=== PATIENT | female | born 1980 | race Caucasian/White ===

== ENCOUNTER 2025-05-08 13:28 | Observation (INO) | payer MEDICAID, OTHER ==
[~2025-05-08] VITALS: Ht 167.6 cm; Wt 92.8 kg
[2025-05-08] MEDS ORDERED: ONDANSETRON HCL 4 MG/2 ML VIAL IM ONE (14:00)
--- NOTE | 2025-05-08 14:03 | ED.PDOC ---
History of Present Illness HPI Comments Ms. Epps is 44-year-old female with no prior medical history, who presents today with chief complaint of nausea and vomiting. She reports this morning she had sudden onset of nausea, vomiting, diarrhea, and sharp generalized abdominal pain, non-radiating, 10/10 intensity, without aggravating or relieving factors, associated with chills and weakness. Refers she has been unable to keep any food or water down since onset of symptoms. She denies hematemesis, blood in stools, cough, chest pain, recent exposure to potentially contaminated foods or sick contacts. Due to persistence of symptoms, the patient presents to the ED for evaluation. On initial eval, the patient is in distress due to pain, she is tachycardic, febrile, and with soft blood pressure. Chief Complaint: Nausea/Vomiting Time Seen by MD: 13:40 Allergies: Coded Allergies: Latex (Verified Allergy, Unknown, 05/08/25) Uncoded Allergies: TAPE (Allergy, Unknown, 05/08/25) Information Source: Patient Mode of Arrival: Ambulatory Severity: Moderate Timing: Hours Duration: Since onset Past Medical History PAST MEDICAL HISTORY: Denies Surgical History (Other): Eye surgery in childhood DIE CUT OPERATOR History: Denies all DIE CUT OPERATOR Hx Family History Family History (Other): Denies Social History Smoker: Non-Smoker Alcohol: Sober (Refers previous binge drinking ) Drugs: Denies Drug Use Lives In: Home Constitutional: reports: chills, weakness; denies: diaphoresis, fatigue, fever, malaise, sweats EENTM: denies: blurred vision, double vision, ear bleeding, ear discharge, ear drainage, ear pain, ear ringing, eye pain, eye redness, hearing loss, mouth pain, mouth swelling, nasal discharge, nose bleeding, nose congestion, nose pain, photophobia, tearing, throat pain, throat swelling Respiratory: denies: cough, hemoptysis, orthopnea, shortness of breath Cardiovascular: denies: chest pain, dizzy spells, diaphoresis, Dyspnea on exertion, edema, left arm pain, lightheadedness, palpitations Gastrointestinal: reports: abdominal pain, diarrhea, nausea, poor appetite, poor fluid intake, vomiting; denies: abdomen distended, blood streaked bowels, constipated, hematemesis, melena, rectal bleeding Genitourinary: denies: burning, dysuria, flank pain, frequency, hematuria, pain, urgency Neurological: reports: dizziness; denies: fainting, headache, numbness, paresthesia, pre-existing deficit, seizure, tingling, tremors Musculoskeletal: reports: back pain; denies: joint pain, joint swelling, muscle pain, muscle stiffness, neck pain Integumetry: denies: bruises, laceration, lesions, lumps, rash, wounds Physical Exam General Appearance: Moderate Distress, Obese HEENT: Normal ENT Inspection, PERRL/EOMI, Pharynx Normal Neck: Full Range of Motion, Non-Tender, Normal Inspection Respiratory: Chest Non-Tender, Lungs Clear, No Accessory Muscle Use, No Respiratory Distress, Normal Breath Sounds Cardiovascular: No Edema, No Murmur, Normal Peripheral Pulses, Tachycardia Breast Exam: Deferred Gastrointestinal: Non Tender, Soft, Other (Hyperactive bowel sounds ) Genitalia: Deferred Pelvic: Deferred Rectal: Deferred Extremities: Normal capillary refill, Normal inspection, Normal range of motion, Non-tender, No pedal edema Neurologic: Alert, Normal Affect, Normal Mood Cerebellar Function: Normal Reflexes: NOT DONE Skin: Normal Color Lymphatic: Other (No Cervical adenopathy) Was a procedure done? Was a procedure done?: No Differential Dx Considerations may include: Acute gastroenteritis, colitis, gastritis, pancreatitis, cholecystitis, diverticulitis, X-Ray, Labs, Meds, VS Vital Signs Date Time Temp Pulse Resp B/P (MAP) Pulse Ox O2 Delivery O2 Flow Rate FiO2 05/08/25 14:30 97 20 98 Room Air 05/08/25 14:30 97 20 113/69 (84) 100 05/08/25 13:30 100.0 110 20 99/59 98 100.0 Lab Test 05/08/25 14:41 05/08/25 14:38 05/08/25 14:37 Range/Units Lactic Acid Level 1.0 0.4-2.0 mmol/L White Blood Count 4.9 4.4-10.8 10^3/uL Red Blood Count 4.75 4.0-5.20 10^6/uL Hemoglobin 14.8 12.2-16.2 g/dL Hematocrit 43.2 36.0-46.0 % Mean Corpuscular Volume 91.0 80.0-100.0 fL Mean Corpuscular Hemoglobin 31.1 28.0-32.0 pg Mean Corpuscular Hemoglobin Concent 34.2 32.0-36.0 g/dL Red Cell Distribution Width 13.5 11.8-14.3 % Platelet Count 244 140-450 10^3/uL Mean Platelet Volume 7.7 6.9-10.8 fL Neutrophils (%) (Auto) 91.0 H 37.0-80.0 % Lymphocytes (%) (Auto) 2.5 L 10.0-50.0 % Monocytes (%) (Auto) 6.2 0.0-12.0 % Eosinophils (%) (Auto) 0.2 0.0-7.0 % Basophils (%) (Auto) 0.1 0.0-2.0 % Neutrophils # (Auto) 4.5 1.6-8.6 10 ^3/uL Lymphocytes # (Auto) 0.1 L 0.4-5.4 10 ^3/uL Monocytes # (Auto) 0.3 0-1.3 10 ^3/uL Eosinophils # (Auto) 0 0-0.8 10 ^3/uL Basophils # (Auto) 0 0-0.2 10 ^3/uL Nucleated Red Blood Cells 0.0 % Sodium Level 142 136-145 mmol/L Potassium Level 3.9 3.5-5.1 mmol/L Chloride Level 109 H 98-107 mmol/L Carbon Dioxide Level 20 20-31 mmol/L Anion Gap 13 5-15 Blood Urea Nitrogen 12 9-23 mg/dL Creatinine 0.81 0.550-1.02 mg/dL Glomerular Filtration Rate Calc 91 >90 mL/min BUN/Creatinine Ratio 14.8 10.0-20.0 Serum Glucose 91 74-106 mg/dL Calcium Level 9.3 8.7-10.4 mg/dL Total Bilirubin 0.8 0.2-1.0 mg/dL Aspartate Amino Transferase (AST) 19 13-40 U/L Alanine Aminotransferase (ALT) < 9 7-40 U/L Alkaline Phosphatase 82 46-116 U/L Total Protein 7.3 5.7-8.2 g/dL Albumin 4.3 3.2-4.8 g/dL Lipase 36 12-53 U/L Urine Opiates Screen Neg NEGATIVE Urine Fentanyl Screen Neg NEGATIVE Urine Barbiturates Screen Neg NEGATIVE Urine Phencyclidine Screen Neg NEGATIVE Urine Amphetamines Screen Neg NEGATIVE Urine Benzodiazepines Screen Neg NEGATIVE Urine Cocaine Screen Neg NEGATIVE Urine Cannabinoids Screen Neg NEGATIVE Urine Color Yellow Yellow Urine Clarity Clear Clear Urine pH 5.5 5.0-9.0 Urine Specific [place] 1.027 1.001-1.035 Urine Protein Negative Negative Urine Ketones 3+ H Negative Urine Blood 1+ H Negative /uL Urine Nitrite Negative Negative Urine Bilirubin Negative Negative Urine Urobilinogen Normal Negative mg/dL Urine Leukocyte Esterase Negative Negative /uL Urine RBC <1 0 - 4 /hpf Urine Microscopic WBC 1 0-5 /HPF Urine Squamous Epithelial Cells Mod <5 /hpf Urine Bacteria None seen None Seen /hpf Urine Mucus Few None Seen Urine Glucose Normal Normal mg/dL Urine Test Negative Negative Current Medications Medications (Trade) Dose Ordered Sig/Gabriella Route Start Time Stop Time Status Last Admin Sodium Chloride 1,800 ml @ 1,800 mls/hr ONCE ONCE IV 05/08/25 14:00 05/08/25 14:59 DC 05/08/25 14:24 Ketorolac Tromethamine (Toradol Injection) 15 mg ONCE ONCE IV 05/08/25 14:00 05/08/25 14:10 DC 05/08/25 15:46 Ceftriaxone Sodium 50 ml @ 100 mls/hr ONCE ONCE IV 05/08/25 14:15 05/08/25 14:44 DC 05/08/25 14:32 Metronidazole 100 ml @ 100 mls/hr ONCE ONCE IV 05/08/25 14:15 05/08/25 15:14 DC 05/08/25 15:46 Ondansetron HCl (Zofran) 4 mg ONCE ONCE IV 05/08/25 14:30 05/08/25 14:31 DC 05/08/25 14:32 Time of 1ST Reevaluation: 15:20 (States nausea, vomiting, and pain have improved with medications, vitals have improved) Reevaluation 1ST: Improved Patient Education/Counseling: Diagnosis, Treatment Family Education/Counseling: No Family Present Comments The patient presented today with chief complaint of sudden onset of nausea, vomiting, diarrhea, and abdominal pain On initial evaluation, the patient was febrile, tachycardic, with soft blood pressure, in distress Sepsis protocol was initiated, blood cultures and lactic acid were drawn, fluids were initiated, and IV antibiotics were given CBC shows neutrophilia, CMP without alterations, lactic acid was 1, UDS and UA, without significant finding Due to suspicion of possible sepsis secondary to gastroenteritis the patient will be admitted for further workup and management SEPSIS Sepsis Screen Date sepsis recognized/suspect: May 08, 2025 Time Sepsis recognized/suspect: 1330 Recent Procedure: No On Antibiotic Therapy: No Respiratory Rate >20: No Heart Rate >90: Yes Temp<36 C (96.8 F) or >38.3 C: No SBP <90 or MAP <65 mmHG: No New Acute Mental Status Change: No Is the patient on CPAP, BIPAP,: No Physician Orders Blood Culture (05/08/25 13:53) Ct Ab Pel Wo Con-No Oral Or Iv (05/08/25 15:40) Vital Signs Date Time Temp Pulse Resp B/P (MAP) Pulse Ox O2 Delivery O2 Flow Rate FiO2 05/08/25 14:30 97 20 98 Room Air 05/08/25 14:30 97 20 113/69 (84) 100 05/08/25 13:30 100.0 110 20 99/59 98 100.0 Laboratory Tests Test 05/08/25 14:38 05/08/25 14:41 White Blood Count 4.9 10^3/uL (4.4-10.8) Lactic Acid Level 1.0 mmol/L (0.4-2.0) Medications Medications Dose Ordered Sig/Gabriella Route Start Time Stop Time Status Last Admin Dose Admin Ceftriaxone Sodium 50 ml @ 100 mls/hr ONCE ONCE IV 05/08/25 14:15 05/08/25 14:44 DC 05/08/25 14:32 Ketorolac Tromethamine 15 mg ONCE ONCE IV 05/08/25 14:00 05/08/25 14:10 DC 05/08/25 15:46 Metronidazole 100 ml @ 100 mls/hr ONCE ONCE IV 05/08/25 14:15 05/08/25 15:14 DC 05/08/25 15:46 Ondansetron HCl 4 mg ONCE ONCE IV 05/08/25 14:30 05/08/25 14:31 DC 05/08/25 14:32 Sodium Chloride 1,800 ml @ 1,800 mls/hr ONCE ONCE IV 05/08/25 14:00 05/08/25 14:59 DC 05/08/25 14:24 Departure 1 Departure Time of Disposition: 15:52 Impression: Primary Impression: Sepsis Additional Impression: Gastroenteritis Disposition: 30 STILL A PATIENT Admit to: Med Surg Condition: Stable Critical Care Note Critical Care Time?: No Stability Stability form required: CATHY Toure RESIDENT May 08, 2025 14:03
[2025-05-08] MEDS: SODIUM CHLORIDE 0.9% 1,800 ML IV ONE (14:24)
[2025-05-08] MEDS: ONDANSETRON HCL 4 MG/2 ML VIAL ONE (14:26)
[2025-05-08] MEDS: ONDANSETRON HCL 4 MG/2 ML VIAL IV ONE (14:32)
[2025-05-08 14:54] LABS: Urine Protein, UAD Negative (Negative)
[2025-05-08 15:05] LABS: Hematocrit 43.2 % (36.0-46.0); Hemoglobin 14.8 g/dL (12.2-16.2); Mean Corpuscular Hemoglobin 31.1 pg (28.0-32.0); Mean Corpuscular Volume 91.0 fL (80.0-100.0); Nucleated Red Blood Cells % 0.0 %
[2025-05-08 15:07] LABS: Amphetamine Screen, Urine Neg (NEGATIVE); Barbiturate Scree,Urine Neg (NEGATIVE); Benzodiazephine Screen, Urine Neg (NEGATIVE); Cannabinoid Screen, Urine Neg (NEGATIVE); Cocaine Screen, Urine Neg (NEGATIVE); Opiate Scree,Urine Neg (NEGATIVE); Phencyclidine Screen, Urine Neg (NEGATIVE)
[2025-05-08 15:11] LABS: Albumin 4.3 g/dL (3.2-4.8); Alkaline Phosphatase 82 U/L (46-116); Anion Gap 13 (5-15); BUN/Creatinine Ratio 14.8 (10.0-20.0); Bilirubin, Total 0.8 mg/dL (0.2-1.0); Blood Urea Nitrogen 12 mg/dL (9-23); Calcium 9.3 mg/dL (8.7-10.4); Glucose 91 mg/dL (74-106); Potassium 3.9 mmol/L (3.5-5.1); Sodium 142 mmol/L (136-145); Total Protein 7.3 g/dL (5.7-8.2)
[2025-05-08 15:12] LABS: Alanine Aminotransferase < 9 U/L (7-40); Carbon Dioxide 20 mmol/L (20-31); Chloride 109 mmol/L (98-107)
[2025-05-08] MEDS: KETOROLAC TROMETH 30 MG/ML 1ML VIAL IV ONE (15:46)
--- NOTE | 2025-05-08 17:54 | DVH ---
CLINICAL HISTORY: Abdominal Pain TECHNIQUE: CT of the abdomen and pelvis was performed without IV contrast. This exam was performed ac cording to our departmental dose optimization program. Up-to-date CT equipment and radiation dose red uction techniques are utilized as appropriate. CTDI 19.4 DLP 1023 COMPARISON: None FINDINGS: Abdomen/Pelvis: The spleen, pancreas, adrenal glands, left kidney, gallbladder, liver, bladder, and uterus are grossl y unremarkable. There is minimal peripheral right renal cortical scarring. The abdominal aorta is normal in course and caliber. There are no significant atherosclerotic calcifi cations. There is no free intraperitoneal air or fluid. There is no enlarged abdominal pelvic lymph node. There is no bowel wall thickening or dilatation. The appendix is normal. There is a tiny fat containi ng umbilical hernia Other: The imaged lower thorax is unremarkable. No acute osseous abnormality is evident. Impression: No acute abnormality.
[2025-05-08] MEDS: SODIUM CHLORIDE 0.9% 1,000 ML IV ONE (17:57)
--- NOTE | 2025-05-08 19:27 | DVHHPRES ---
History of Present Illness Resident Creating Document: PHONG MEDINA RESIDENT History of Present Illness Elissa Epps is 44-year-old female with no prior medical history, who presents today with chief complaint of nausea,vomiting and diarrhea. She reports this morning she had sudden onset of nausea, vomiting, diarrhea, and sharp generalized abdominal pain, non-radiating, 10/10 intensity, without aggravating or relieving factors, associated with chills and weakness. Refers she has been unable to keep any food or water down since onset of symptoms. She denies hematemesis, blood in stools, cough, chest pain, recent exposure to potentially contaminated foods or sick contacts. Due to persistence of symptoms, the patient presents to the ED for evaluation. On initial eval, the patient is in distress due to pain, she is tachycardic, febrile, and with soft blood pressure. Past medical history: meningitis (20 years back), peptic ulcer disease 30 years back Past surgical history: eye surgery for strabismus (age 6 years) Home medications: none Social & Personal history: lives at home with family Smoking: denies Alcohol: denies Drugs: denies Allergies: latex,tape Smoke: No ALCOHOL: none Drugs: None Lives: with Family Review of Systems Review of Systems Patient seen and examined at bedside. Patient is alert and oriented to time, place person and responding to all questions. Eyes: No Pain, No Vision change, No Conjunctivae inflammation, No Eyelid inflammation, No Redness ENT: No Ear pain, No Ear discharge, No Nose pain, No Nose discharge, No Nose congestion, No Mouth pain, No Mouth swelling, No Throat pain, No Throat swelling Cardiovascular: No Chest Pain, No Palpitations, No Orthopnea, No Paroxysmal No Dyspnea, No Edema, No Lt Headedness Respiratory: No Cough, No Dry, No Shortness of breath, No SOB with exertion, No Wheezing, No Hemoptysis, No Pleuritic Pain, No Sputum Gastrointestinal: Nausea, no Vomiting, Abdominal Pain, No Diarrhea, No Constipation, No Melena, No Hematochezia Genitourinary: No Dysuria, No Frequency, No Incontinence, No Hematuria, No Retention Allergies: Coded Allergies: Latex (Verified Allergy, Unknown, 05/08/25) Uncoded Allergies: TAPE (Allergy, Unknown, 05/08/25) Medications Current Medications Medications Dose Ordered Sig/Gabriella Route Start Time Stop Time Status Last Admin Dose Admin Acetaminophen 650 mg Q6HP PRN PO 05/08/25 18:30 Ondansetron HCl 4 mg Q6HPRN PRN IV 05/08/25 18:45 Sodium Chloride 1,000 ml @ 75 mls/hr [id number] IV 05/08/25 18:45 Pantoprazole Sodium 40 mg DAILY IV 05/09/25 10:00 Exam Vital Signs Vital Signs Date Time Temp Pulse Resp B/P (MAP) Pulse Ox O2 Delivery O2 Flow Rate FiO2 05/08/25 18:10 86 18 103/64 (77) 99 05/08/25 14:30 Room Air 05/08/25 13:30 100.0 100.0 Exam General Appearance: Cooperative. Well developed. Well nourished. NAD Head Exam: Normal inspection Neck Exam: Normal inspection. Non-tender. Normal alignment Pulmonary/Respiratory: Chest non-tender. Clear bilateral breath sounds, no crackles, no wheezing. Cardiovascular/Chest: Regular rate and rhythm. No murmurs. No JVD. Peripheral Pulses: 2+ Radial (R). 2+ Radial (L). 2+ Pedal (R). 2+ Pedal (L) Abdominal Exam: Normal bowel sounds. Soft. normal abdomen, no visible veins, Nontender. No hepatospenomegaly. No masses Ankle Exam: Negative ankle edema Lower extremities: Negative lower extremity edema Neuro/Mental Status: A&O x4. Coherent. Thoughts/Psych: Normal thought pattern. Appropriate mood and affect. Good judgement and insight Skin Exam: Normal inspection. Normal color. Warm. Dry Labs/Xrays Labs Test 05/08/25 14:41 05/08/25 14:38 05/08/25 14:37 Range/Units Lactic Acid Level 1.0 0.4-2.0 mmol/L White Blood Count 4.9 4.4-10.8 10^3/uL Red Blood Count 4.75 4.0-5.20 10^6/uL Hemoglobin 14.8 12.2-16.2 g/dL Hematocrit 43.2 36.0-46.0 % Mean Corpuscular Volume 91.0 80.0-100.0 fL Mean Corpuscular Hemoglobin 31.1 28.0-32.0 pg Mean Corpuscular Hemoglobin Concent 34.2 32.0-36.0 g/dL Red Cell Distribution Width 13.5 11.8-14.3 % Platelet Count 244 140-450 10^3/uL Mean Platelet Volume 7.7 6.9-10.8 fL Neutrophils (%) (Auto) 91.0 H 37.0-80.0 % Lymphocytes (%) (Auto) 2.5 L 10.0-50.0 % Monocytes (%) (Auto) 6.2 0.0-12.0 % Eosinophils (%) (Auto) 0.2 0.0-7.0 % Basophils (%) (Auto) 0.1 0.0-2.0 % Neutrophils # (Auto) 4.5 1.6-8.6 10 ^3/uL Lymphocytes # (Auto) 0.1 L 0.4-5.4 10 ^3/uL Monocytes # (Auto) 0.3 0-1.3 10 ^3/uL Eosinophils # (Auto) 0 0-0.8 10 ^3/uL Basophils # (Auto) 0 0-0.2 10 ^3/uL Nucleated Red Blood Cells 0.0 % Sodium Level 142 136-145 mmol/L Potassium Level 3.9 3.5-5.1 mmol/L Chloride Level 109 H 98-107 mmol/L Carbon Dioxide Level 20 20-31 mmol/L Anion Gap 13 5-15 Blood Urea Nitrogen 12 9-23 mg/dL Creatinine 0.81 0.550-1.02 mg/dL Glomerular Filtration Rate Calc 91 >90 mL/min BUN/Creatinine Ratio 14.8 10.0-20.0 Serum Glucose 91 74-106 mg/dL Calcium Level 9.3 8.7-10.4 mg/dL Total Bilirubin 0.8 0.2-1.0 mg/dL Aspartate Amino Transferase (AST) 19 13-40 U/L Alanine Aminotransferase (ALT) < 9 7-40 U/L Alkaline Phosphatase 82 46-116 U/L Total Protein 7.3 5.7-8.2 g/dL Albumin 4.3 3.2-4.8 g/dL Lipase 36 12-53 U/L Urine Opiates Screen Neg NEGATIVE Urine Fentanyl Screen Neg NEGATIVE Urine Barbiturates Screen Neg NEGATIVE Urine Phencyclidine Screen Neg NEGATIVE Urine Amphetamines Screen Neg NEGATIVE Urine Benzodiazepines Screen Neg NEGATIVE Urine Cocaine Screen Neg NEGATIVE Urine Cannabinoids Screen Neg NEGATIVE Urine Color Yellow Yellow Urine Clarity Clear Clear Urine pH 5.5 5.0-9.0 Urine Specific [place] 1.027 1.001-1.035 Urine Protein Negative Negative Urine Ketones 3+ H Negative Urine Blood 1+ H Negative /uL Urine Nitrite Negative Negative Urine Bilirubin Negative Negative Urine Urobilinogen Normal Negative mg/dL Urine Leukocyte Esterase Negative Negative /uL Urine RBC <1 0 - 4 /hpf Urine Microscopic WBC 1 0-5 /HPF Urine Squamous Epithelial Cells Mod <5 /hpf Urine Bacteria None seen None Seen /hpf Urine Mucus Few None Seen Urine Glucose Normal Normal mg/dL Urine Test Negative Negative SEPSIS Sepsis Screen Date sepsis recognized/suspect: May 08, 2025 Time Sepsis recognized/suspect: 1329 Recent Procedure: No On Antibiotic Therapy: No Respiratory Rate >20: No Heart Rate >90: Yes Temp<36 C (96.8 F) or >38.3 C: No SBP <90 or MAP <65 mmHG: No New Acute Mental Status Change: No Is the patient on CPAP, BIPAP,: No Physician Orders Blood Culture (05/08/25 13:53) Ct Ab Pel Wo Con-No Oral Or Iv (05/08/25 15:40) Admit (05/08/25 18:26) Allergies (05/08/25 18:26) Code Status (05/08/25 18:26) Complete Blood Count (05/09/25 04:00) Comprehensive Metabolic Panel (05/09/25 04:00) Condition: Fair (05/08/25 18:26) Acetaminophen Tablet (Tylenol Tablet) (05/08/25 18:30) Ondansetron Hcl (Zofran) (05/08/25 18:45) Sodium Chloride 0.9% (05/08/25 18:45) Full Liq Diet (05/09/25 Breakfast) Pantoprazole (Protonix) (05/09/25 10:00) Rapid Influenza A&B (05/08/25 18:42) Covid19 Antigen Melissa (05/08/25 ) Vital Signs Date Time Temp Pulse Resp B/P (MAP) Pulse Ox O2 Delivery O2 Flow Rate FiO2 05/08/25 18:10 86 18 103/64 (77) 99 05/08/25 14:30 97 20 98 Room Air 05/08/25 14:30 97 20 113/69 (84) 100 05/08/25 13:30 100.0 110 20 99/59 98 100.0 Laboratory Tests Test 05/08/25 14:38 05/08/25 14:41 White Blood Count 4.9 10^3/uL (4.4-10.8) Lactic Acid Level 1.0 mmol/L (0.4-2.0) Medications Medications Dose Ordered Sig/Gabriella Route Start Time Stop Time Status Last Admin Dose Admin Ceftriaxone Sodium 50 ml @ 100 mls/hr ONCE ONCE IV 05/08/25 14:15 05/08/25 14:44 DC 05/08/25 14:32 100 MLS/HR Ketorolac Tromethamine 15 mg ONCE ONCE IV 05/08/25 14:00 05/08/25 14:10 DC 05/08/25 15:46 15 MG Metronidazole 100 ml @ 100 mls/hr ONCE ONCE IV 05/08/25 14:15 05/08/25 15:14 DC 05/08/25 15:46 100 MLS/HR Ondansetron HCl 4 mg ONCE ONCE IV 05/08/25 14:30 05/08/25 14:31 DC 05/08/25 14:32 4 MG Sodium Chloride 1,000 ml @ 1,000 mls/hr Q1H ONCE IV 05/08/25 17:45 05/08/25 18:44 DC 05/08/25 17:57 1,000 MLS/HR Sodium Chloride 1,800 ml @ 1,800 mls/hr ONCE ONCE IV 05/08/25 14:00 05/08/25 14:59 DC 05/08/25 14:24 1,800 MLS/HR Assessment/Plan Assessment/Plan SIRS,source unidentified -temp 100, pulse 110, BP 99/59 on admission -lactic acid level normal Acute intractable abdominal pain and nausea Acute gastroenteritis, likely bacterial -NS @75ml/hr -protonix 40mg daily iv -zofran q6 prn -Abd/pelvic CT- unremarkable PUD prophylaxis: protonix 40mg daily iv DVT prophylaxis:not indicated Goals of care: Full code, discussed for >23 minutes Plan discussed with patient Plan discussed with Dr Fritz Plan discussed with: Patient My Orders Orders - PHONG MEDINA RESIDENT Procedure Category Date Status Time Admit ADMIT 05/08/25 Transmitted 18:26 Allergies JOSE ENRIQUE 05/08/25 In Process 18:26 Code Status CODE 05/08/25 Transmitted 18:26 Complete Blood Count LAB 05/09/25 Verified 04:00 Comprehensive LAB 05/09/25 Verified Metabolic Panel 04:00 Condition: Fair JOSE ENRIQUE 05/08/25 In Process 18:26 Acetaminophen Tablet PHA 05/08/25 In Process (Tylenol Tablet) 18:30 Ondansetron Hcl PHA 05/08/25 In Process (Zofran) 18:45 Sodium Chloride 0.9% PHA 05/08/25 In Process 18:45 Full Liq Diet DIET 05/09/25 Transmitted Breakfast Pantoprazole PHA 05/09/25 In Process (Protonix) 10:00 Rapid Influenza A&B LAB 05/08/25 Logged 18:42 Covid19 Antigen Melissa LAB 05/08/25 Logged Date of Service: May 08, 2025 Billing Provider: MEGAN FRITZ MD Common Visit Codes: [id number] INP/OBS CARE (HIGH) Secondary Visit Codes: [id number] CARE PLAN 30 MINUTES PHONG MEDINA RESIDENT May 08, 2025 19:27 MEGAN FRITZ MD May 09, 2025 22:51
[2025-05-08] MEDS: SODIUM CHLORIDE 0.9% 1,000 ML IV SCH (19:30)
[2025-05-08] MEDS: PANTOPRAZOLE 40 MG/10 ML VIAL INJ IV ONE (19:33)
[2025-05-08 19:36] VITALS: PULSE 80; RESP 20; O2SAT 100
[2025-05-08 20:54] LABS: COVID19 ANTIGEN SOFIA FIA NEGATIVE (NEGATIVE)
[2025-05-08 21:57] VITALS: BP 122/76; PULSE 88; RESP 17; TEMP 97.8; O2SAT 99
[2025-05-08 22:03] VITALS: BP 122/76; PULSE 88; RESP 17; TEMP 97.8; O2SAT 99
[2025-05-08] MEDS: ONDANSETRON HCL 4 MG/2 ML VIAL IV PRN (22:10)
[2025-05-08] MEDS: ACETAMINOPHEN 325 MG TAB PO PRN (22:54)
[2025-05-08 23:15] VITALS: PULSE 88; RESP 17; O2SAT 99
[2025-05-09 01:00] VITALS: BP 106/69; PULSE 89; RESP 18; TEMP 99.1; O2SAT 96
[2025-05-09 05:00] VITALS: BP 103/60; PULSE 84; RESP 18; TEMP 97.8; O2SAT 97
[2025-05-09 07:01] LABS: Hematocrit 35.8 % (36.0-46.0); Hemoglobin 12.1 g/dL (12.2-16.2); Mean Corpuscular Hemoglobin 31.1 pg (28.0-32.0); Mean Corpuscular Volume 91.7 fL (80.0-100.0); Nucleated Red Blood Cells % 0.1 %
[2025-05-09 07:16] LABS: Alkaline Phosphatase 62 U/L (46-116); Anion Gap 13 (5-15); BUN/Creatinine Ratio 13.9 (10.0-20.0); Blood Urea Nitrogen 10 mg/dL (9-23); Sodium 143 mmol/L (136-145); Total Protein 5.9 g/dL (5.7-8.2)
[2025-05-09 07:17] LABS: Alanine Aminotransferase < 9 U/L (7-40); Albumin 3.4 g/dL (3.2-4.8); Calcium 7.8 mg/dL (8.7-10.4); Carbon Dioxide 18 mmol/L (20-31); Chloride 112 mmol/L (98-107); Glucose 72 mg/dL (74-106); Potassium 3.4 mmol/L (3.5-5.1)
[2025-05-09 07:18] LABS: Bilirubin, Total 0.5 mg/dL (0.2-1.0)
[2025-05-09] MEDS: PANTOPRAZOLE 40 MG/10 ML VIAL INJ IV SCH (08:18)
[2025-05-09 09:00] VITALS: BP 109/73; PULSE 82; RESP 16; TEMP 98.7; O2SAT 98
[2025-05-09 09:55] VITALS: BP 109/73; PULSE 82; RESP 16; TEMP 98.7; O2SAT 98
--- NOTE | 2025-05-09 15:40 | DVHDSRES ---
Discharge Summary Date of Admission Resident Creating Document: PHONG MEDINA RESIDENT May 08, 2025 at 13:24 Date of Discharge: May 09, 2025 Admitting Diagnosis Intractable abdominal pain,likely due to acute gastroenteritis Labs/Diagnostic Data: Laboratory Results Test 05/09/25 06:03 05/08/25 20:03 05/08/25 14:41 05/08/25 14:38 White Blood Count 3.4 10^3/uL (4.4-10.8) Red Blood Count 3.90 10^6/uL (4.0-5.20) Hemoglobin 12.1 g/dL (12.2-16.2) Hematocrit 35.8 % (36.0-46.0) Mean Corpuscular Volume 91.7 fL (80.0-100.0) Mean Corpuscular Hemoglobin 31.1 pg (28.0-32.0) Mean Corpuscular Hemoglobin Concent 33.9 g/dL (32.0-36.0) Red Cell Distribution Width 13.8 % (11.8-14.3) Platelet Count 204 10^3/uL (140-450) Mean Platelet Volume 7.9 fL (6.9-10.8) Neutrophils (%) (Auto) 76.6 % (37.0-80.0) Lymphocytes (%) (Auto) 8.8 % (10.0-50.0) Monocytes (%) (Auto) 13.9 % (0.0-12.0) Eosinophils (%) (Auto) 0.5 % (0.0-7.0) Basophils (%) (Auto) 0.2 % (0.0-2.0) Neutrophils # (Auto) 2.6 10 ^3/uL (1.6-8.6) Lymphocytes # (Auto) 0.3 10 ^3/uL (0.4-5.4) Monocytes # (Auto) 0.5 10 ^3/uL (0-1.3) Eosinophils # (Auto) 0 10 ^3/uL (0-0.8) Basophils # (Auto) 0 10 ^3/uL (0-0.2) Nucleated Red Blood Cells 0.1 % Sodium Level 143 mmol/L (136-145) Potassium Level 3.4 mmol/L (3.5-5.1) Chloride Level 112 mmol/L (98-107) Carbon Dioxide Level 18 mmol/L (20-31) Anion Gap 13 (5-15) Blood Urea Nitrogen 10 mg/dL (9-23) Creatinine 0.72 mg/dL (0.550-1.02) Glomerular Filtration Rate Calc 105 mL/min (>90) BUN/Creatinine Ratio 13.9 (10.0-20.0) Serum Glucose 72 mg/dL (74-106) Calcium Level 7.8 mg/dL (8.7-10.4) Total Bilirubin 0.5 mg/dL (0.2-1.0) Aspartate Amino Transferase (AST) 21 U/L (13-40) Alanine Aminotransferase (ALT) < 9 U/L (7-40) Alkaline Phosphatase 62 U/L (46-116) Total Protein 5.9 g/dL (5.7-8.2) Albumin 3.4 g/dL (3.2-4.8) Influenza Type A Antigen Negative (Negative) Influenza Type B Antigen Negative (Negative) SARS-CoV-2 Antigen (Rapid) Negative (NEGATIVE) Lactic Acid Level 1.0 mmol/L (0.4-2.0) Lipase 36 U/L (12-53) Urine Opiates Screen Neg (NEGATIVE) Urine Fentanyl Screen Neg (NEGATIVE) Urine Barbiturates Screen Neg (NEGATIVE) Urine Phencyclidine Screen Neg (NEGATIVE) Urine Amphetamines Screen Neg (NEGATIVE) Urine Benzodiazepines Screen Neg (NEGATIVE) Urine Cocaine Screen Neg (NEGATIVE) Urine Cannabinoids Screen Neg (NEGATIVE) Test 05/08/25 14:37 Urine Color Yellow (Yellow) Urine Clarity Clear (Clear) Urine pH 5.5 (5.0-9.0) Urine Specific Mccoy 1.027 (1.001-1.035) Urine Protein Negative (Negative) Urine Ketones 3+ (Negative) Urine Blood 1+ /uL (Negative) Urine Nitrite Negative (Negative) Urine Bilirubin Negative (Negative) Urine Urobilinogen Normal mg/dL (Negative) Urine Leukocyte Esterase Negative /uL (Negative) Urine RBC <1 /hpf (0 - 4) Urine Microscopic WBC 1 /HPF (0-5) Urine Squamous Epithelial Cells Mod /hpf (<5) Urine Bacteria None seen /hpf (None Seen) Urine Mucus Few (None Seen) Urine Glucose Normal mg/dL (Normal) Urine Test Negative (Negative) Other Laboratory Tests 05/09/25 06:03 Brief Hx & Hospital Course: Elissa Epps is a 44-year-old female with no prior significant medical history, who presented to the ED with chief complaint of nausea,vomiting and diarrhea. She had sudden onset of nausea, vomiting, diarrhea, and sharp generalized abdominal pain, non-radiating, 10/10 intensity, without aggravating or relieving factors, associated with chills and weakness. Referred she had been unable to keep any food or water down since onset of symptoms. She denied hematemesis, blood in stools, cough, chest pain, recent exposure to potentially contaminated foods or sick contacts. On initial evaluation, the patient was in distress due to pain, tachycardic, febrile, and with soft blood pressure. Abdominal CT showed no acute abnormality. Over the course of her hospitalization, her pain and nausea reduced considerably and blood pressure returned to normal. Patient was discharged home in a stable condition. All recommendations were explained thoroughly to the patient and she demonstrated understanding of the same. Patient was asked to follow up with PCP. Past medical history: meningitis (20 years back), peptic ulcer disease 30 years back Past surgical history: eye surgery for strabismus (age 6 years) Home medications: none Social & Personal history: lives at home with family Smoking: denies Alcohol: denies Drugs: denies Allergies: latex,tape Smoke: No ALCOHOL: none Drugs: None Lives: with Family General Appearance: Cooperative. Well developed. Well nourished. NAD Head Exam: Normal inspection Neck Exam: Normal inspection. Non-tender. Normal alignment Pulmonary/Respiratory: Chest non-tender. Clear bilateral breath sounds, no crackles, no wheezing. Cardiovascular/Chest: Regular rate and rhythm. No murmurs. No JVD. Peripheral Pulses: 2+ Radial (R). 2+ Radial (L). 2+ Pedal (R). 2+ Pedal (L) Abdominal Exam: Normal bowel sounds. Soft. normal abdomen, no visible veins, Nontender. No hepatospenomegaly. No masses Ankle Exam: Negative ankle edema Lower extremities: Negative lower extremity edema Neuro/Mental Status: A&O x4. Coherent. Thoughts/Psych: Normal thought pattern. Appropriate mood and affect. Good judgement and insight Skin Exam: Normal inspection. Normal color. Warm. Dry Operations or Procedures PROCEDURE(s): ABPL - CT AB PEL WO CON-NO ORAL OR IV REASON: Abdominal Pain ORDER NUMBER(s): [id number], ACCESSION NUMBER(s): [id number] CLINICAL HISTORY: Abdominal Pain TECHNIQUE: CT of the abdomen and pelvis was performed without IV contrast. This exam was performed according to our departmental dose optimization program. Up-to-date CT equipment and radiation dose reduction techniques are utilized as appropriate. CTDI 19.4 DLP 1023 COMPARISON: None FINDINGS: Abdomen/Pelvis: The spleen, pancreas, adrenal glands, left kidney, gallbladder, liver, bladder, and uterus are grossly unremarkable. There is minimal peripheral right renal cortical scarring. The abdominal aorta is normal in course and caliber. There are no significant atherosclerotic calcifications. There is no free intraperitoneal air or fluid. There is no enlarged abdominal pelvic lymph node. There is no bowel wall thickening or dilatation. The appendix is normal. There is a tiny fat containing umbilical hernia Other: The imaged lower thorax is unremarkable. No acute osseous abnormality is evident. Impression: No acute abnormality. Condition at Discharge: Fair Final Diagnosis/Problems List SIRS,source unidentified Acute intractable abdominal pain and nausea Acute gastroenteritis, likely bacterial Discharge Disposition: Home Discharge Instruct/Medications Diet: Regular Activity: No Restrictions, As Tolerated Follow Up/Referral: follwo up with PCP in 1-2 weeks No Active Prescriptions or Reported Meds Discharge Statement: "Patient was advised to return to the ER or call 911 if any headaches, dizziness, shortness of breath, chest pain, abdominal pain, bleeding, fevers, or worsening of medical condition. Patient was counseled about treatment plan, medications, possible side effects, patientverbalized understanding. All questions were answered to the best of my ability. This discharge took greater then 30 minutes in planning, reviewing documentation, counseling the patient, and discussing with other team members." ASSESSMENT ASSESSMENT Assessment SIRS,source unidentified Acute intractable abdominal pain and nausea Acute gastroenteritis, likely bacterial Date of Service: May 09, 2025 Billing Provider: MEGAN ALVARADO MD Common Visit Codes: 75166-BQJ/OBS DISCH DAY >30min PHONG MEDINA RESIDENT May 09, 2025 15:40 MEGAN ALVARADO MD May 09, 2025 22:52
== END 2025-05-09 14:30 | disposition home or self-care (01) ==
LOC: ER 13:28 → UNDOADMOB 18:26 → OVERFLOW 18:26 → WEST WING 21:57
PROVIDERS: ADMIT Internal Medicine
DX: K52.9 Noninfective gastroenteritis and colitis, unspecified (principal); R53.1 Weakness; R42 Dizziness and giddiness; M54.9 Dorsalgia, unspecified; R63.0 Anorexia; R11.0 Nausea; Z79.899 Other long term (current) drug therapy; Z20.822 Contact with and (suspected) exposure to COVID-19; Z98.890 Other specified postprocedural states
CPT/HCPCS: 36415; 74176; 80053; 80307; 81001; 81025; 83605; 83690; 85025; 87040; 87426; 87804; 96361; 96365; 96367; 96375; 96376; 99285; G0378; J0696; J1885; J2405; J2470; J7030